=== PATIENT | male | born 1975 | race Two or more races ===

== ENCOUNTER 2020-06-23 06:07 | Emergency (ER) | payer SELFPAY ==
[~2020-06-23] VITALS: Ht 177.8 cm; Wt 104.5 kg
--- NOTE | 2020-06-23 06:23 | PHYS DOC ---
General Adult EDM: Chief Complaint: HYPERTENSION HPI: HPI: 44 yo M past medical history of tobacco dependence and hypertension, presents the ED with complaints of " my blood pressure is high." Patient states he woke up with shortness of breath, palpitations and lower extremity tremors, knew that his bp was high like 2 years prior (did not take bp at home). Patient does admit to drinking 8 beers last night and states he only drinks alcohol on weekends, not daily, denies any alcohol dependence/withdrawal symptoms. Was on blood pressure medication 2 years ago but never followed up. Has no routine PCP. States shortness of breath has improved. Denies any methamphetamine, cocaine, IVDU, Sudafed or other stimulants. No history of stroke, renal damage or CAD. No past surgical history. 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 Denies any history of anxiety, increased stress or fear. Patient presents to the ED with his daughter. Patient is German-speaking and declines warehouse examiner services, requests his daughter to translate. Review of Systems: Review of Systems: Constitutional: Denies fever or chills. [] Eyes: Denies change in visual acuity. [] HENT: Denies nasal congestion or sore throat. [] Respiratory: Denies cough or hemoptysis Cardiovascular: Denies chest pain or edema. [] GI: Denies abdominal pain, nausea, vomiting, bloody stools or diarrhea. [] : Denies dysuria or hematuria. [] Musculoskeletal: Denies back pain or joint pain. [] Integument: Denies rash. [] Neurologic: Denies headache, neck stiffness, speech changes, facial droop, focal weakness or sensory changes. [] Endocrine: Denies polyuria or polydipsia. [] Lymphatic: Denies swollen glands. [] Psychiatric: Denies depression or anxiety. [] Heart Score: Risk Factors: Risk Factors: DM, Current or recent (<one month) smoker, HTN, HLP, family history of CAD, obesity. Risk Scores: Score 0 - 3: 2.5% MACE over next 6 weeks - Discharge Home Score 4 - 6: 20.3% MACE over next 6 weeks - Admit for Clinical Observation Score 7 - 10: 72.7% MACE over next 6 weeks - Early Invasive Strategies Physical Exam: PE: Constitutional: Well developed, well nourished, no acute distress, non-toxic appearance. HENT: Normocephalic, atraumatic, Eyes: EOMI, conjunctiva normal, no discharge. Neck: Normal range of motion, supple, Cardiovascular: S1/2 present, regular rhythm, tachycardia present low 100's, bp 191/105 Lungs & Thorax: Speaking in full sentences, bilateral equal chest rise, no tachypnea or increased work of breathing, 98-99% on RA Abdomen: soft, no tenderness, Skin: Warm, dry, no erythema, no rash. [] Back: No tenderness, no CVA tenderness. [] Extremities: No tenderness, no cyanosis, no LE edema, jittery/tremulous extremities Neurologic: Alert and oriented X 3, normal motor function, normal sensory function, no focal deficits noted, CN2-12 intact Psychologic: appears very anxious and nervous despite denying stress/fear/anxiety, judgement normal, EKG: EKG: Sinus rhythm at 96 bpm, left axis deviation, normal intervals, T wave inversion III, no ST elevations or ST depressions Radiology/Procedures: Radiology/Procedures: IMAGING REPORT Signed PATIENT: MARY BAILEY ACCOUNT: [id number] : 1975 LOCATION: ER AGE: 44 SEX: M EXAM STATUS: REG ER ORD. PHYSICIAN: ANA JIMENEZ DO REASON: soa. hypertension x1 day PROCEDURE: CHEST PA & LATERAL EXAM: CHEST PA LATERAL INDICATION: Reason: soa. hypertension x1 day / Spl. Instructions: / History: . TECHNIQUE: PA and lateral views COMPARISON: None FINDINGS: The heart size is normal. The great vessels appear unremarkable. There is no hilar or mediastinal mass. Lungs show patchy peripheral airspace opacity most conspicuous of the right lung base. There is no pleural effusion or pneumothorax. There are no significant osseous abnormalities. IMPRESSION: Findings compatible with atypical pneumonia in the appropriate clinical context. Electronically signed by: Cresencio Sosa MD (06/23/2020 7:15 AM) [id number] DICTATED and SIGNED BY: CRESENCIO SOSA MD DATE: 06/23/20 [id number] Course & Med Decision Making: Course & Med Decision Making Pertinent Labs and Imaging studies reviewed. (See chart for details) COVID-19 CRITERIA: The patient was evaluated during the global COVID-19 pandemic, and that diagnosis was suspected/considered upon their initial presentation. Their evaluation, treatment and testing was consistent with current guidelines for patients who present with complaints or symptoms that may be related to COVID-19. Concern for dyspnea, likely secondary to atypical pneumonia rather than symptomatic hypertension (repeat bp 149/97). Tachycardia resolved with IVFs (dehydration from alcohol? infection?). Does not meet sits criteria. Labs with mild hypokalemia and transaminitis. Declines covid/influenza testing because he doesn't want the nasal swab. Pt aware that covid causes microthrombi/PE-this was not ruled out today, to return if shortness of breath worsens, or if he has chest pain. Reports vaccines are utd, no known h/o hepatitis. Will dc home with abx. Strict ED return precautions were given for facial droop, aphasia, sensory or motor deficits, chest pain, syncope, confusion, worsening shortness of breath or increased work of breathing, ataxia or strokelike symptoms. Encouraged urgent outpatient follow-up with PMD for blood pressure and potassium check. Life-threatening processes were considered but are low suspicion at this time, given history and physical exam. Pt was educated on all prescription medications and adverse effects. All patient's questions were answered and pt was stable at time of discharge. Life/limb-threatening differential includes but is not limited to, ACS, dysrhythmia, pneumothorax or hemothorax, pulmonary embolus, pneumonia, bronchoconstriction, pulmonary edema, angioedema, epiglottitis, tracheitis, Henry's angina, RPA/LINOTYPE MACHINIST APPRENTICE, anaphylaxis, angioedema, cardiac tamponade or murmurs, pericarditis, myocarditis, poisoning or toxicity, sepsis or autoimmune/neurologic disease. I spoken with the patient and her caregivers. I explained the patient's condition, diagnoses and treatment plan based on the information available to me at this time. I have answered the patient and her caregiver's questions and addressed any concerns. The patient and her caregivers have a good understanding of patient's diagnosis, condition and treatment plan as can be exp ected at this point. Vital signs have been stable. Patient's condition is stable and appropriate for discharge from the emergency department. Patient will pursue further outpatient evaluation with primary care physician or other designated or consulting physician as outlined in the discharge instructions. The patient and/or caregivers are agreeable to this plan of care and follow-up instructions have been explained in detail. The patient and/or caregivers have received these instructions in written form and have expressed an understanding of the discharge instructions. The patient and/or caregivers are aware that any significant change of condition or worsening of symptoms should prompt immediate return to this or the closest emergency department or c all to 911. Alisa Disclaimer: Dragmarco Disclaimer: This electronic medical record was generated, in whole or in part, using a voice recognition dictation system. Departure Departure Impression: Primary Impression: Dyspnea Additional Impressions: Atypical pneumonia Transaminitis Hypokalemia Disposition: 01 DC HOME SELF CARE/HOMELESS Condition: STABLE Referrals: LIZETT GROVE MD FOLLOW UP WITH FAMILY MEDICINE in 1-2 weeks for blood pressure, potassium and liver function Family Medicine Address: [address] [place] [id number] Patient Instructions: Hypertension, Pneumonia, Adult Additional Instructions: Return to ED immediately if your oxygen level drops below 90% (purchase a pulse oximetry at a medical supply store), difficulties breathing including rapid breathing or increased work of breathing (skin sucking under ribs), chest pain or stroke-like symptoms. EMERGENCY DEPARTMENT GENERAL DISCHARGE INSTRUCTIONS Thank you for coming to [facility] Emergency Department (ED) today and trusting us with you care. We trust that you had a positive experience in our Emergency Department. If you wish to speak to the department management, you may call the Director at [phone]. YOUR FOLLOW UP INSTRUCTIONS ARE FOLLOWS: 1. Do you have a private Doctor? If you do not have a private doctor, please ask for a resource list of physicians or clinics that may be able to assist you with follow up care. 2. The Emergency Physicain has interpreted your x-rays. The X-Ray specialist will also review them. If there is a change in the findings, you will be notified in 48 hours when at all possible. 3. A lab test or culture has been done, your results will be reviewed and you will be notified if you need a change in treatment. ADDITIONAL INSTRUCTIONS AND INFORMATION: 1. Your care today has been supervised by a physician who is specially trained in emergency care. Many problems require more than one evaluation for a complete diagnosis and treatment. We recommend that you schedule your follow up appointment as recommended to ensure complete treatment of you illness or injury. If you are unable to obtain follow up care and continue to have a problem, or if your condition worsens, we recommend that you return to the ED. 2. We are not able to safely determine your condition over the phone nor are we able to give sound medical advice over the phone. For these safety reasons, if you call for medical advice we will ask you to come to the ED for further evaluation. 3. If you have any questions regarding these discharge instructions please call the ED at [phone]. SAFETY INFORMATION: In the interest of safety, wellness, and injury prevention; we encourage you to wear your sealbelt, if you smoke; quite smoking, and we encourage family to use a protective helmet for bicycling and other sporting events that present an increased risk for head injury. IF YOUR SYMPTOMS WORSEN OR NEW SYMPTOMS DEVELOP, OR YOU HAVE CONCERNS ABOUT YOUR CONDITION; OR IF YOUR CONDITION WORSENS WHILE YOU ARE WAITING FOR YOUR FOLLOW UP APPOINTMENT; EITHER CONTACT YOUR PRIMARY CARE DOCTOR, THE PHYSICIAN WHOSE NAME AND NUMBER YOU WERE GIVEN, OR RETURN TO THE ED IMMEDIATELY. Scripts Azithromycin (ZITHROMAX) 250 Mg Tablet 250 MG PO as directed for ANTI-BIOTIC, #6 TAB 0 Refills Take 2 PO x 1 days Then take 1 PO q 24 hour for the next 4 days Prov: ANA JIMENEZ DO 06/23/20 ANA JIMENEZ DO Jun 23, 2020 06:23
[2020-06-23] MEDS ORDERED: MULTIVIT INFUSN,ADULT 4,VIT K 10 ML, THIAMINE INJ 100 MG, FOLIC ACID INJ 1 MG in IV NOR... IV ONE (06:45)
[2020-06-23 06:50] LABS: BASO # 0.1 x10^3/uL (0.0-0.2); BASO % 1 % (0-3); EOS # 0.1 x10^3/uL (0.0-0.7); EOS % 1 % (0-3); HEMATOCRIT 50.1 % (39.0-53.0); HEMOGLOBIN 17.6 g/dL (13.0-17.5); LYMPH # 2.4 x10^3/uL (1.0-4.8); LYMPH % 35 % (24-48); MEAN CORPUSCULAR HEMOGLOBIN 32 pg (25-35); MEAN CORPUSCULAR HGB CONC 35 g/dL (31-37); MEAN CORPUSCULAR VOLUME 90 fL (79-100); MONO # 0.6 x10^3/uL (0.0-1.1); MONO % 9 % (0-9); NEUT # 3.8 x10^3/uL (1.8-7.7); NEUT % 55 % (31-73); PLATELET COUNT 167 x10^3/uL (140-400); RED BLOOD COUNT 5.56 x10^6/uL (4.30-5.70); RED CELL DISTRIBUTION WIDTH 13.7 % (11.5-14.5); WHITE BLOOD COUNT 6.9 x10^3/uL (4.0-11.0)
[2020-06-23 06:59] LABS: CALCIUM 9.1 mg/dL (8.5-10.1); CREATININE 0.8 mg/dL (0.7-1.3); GFR 104.1; POTASSIUM 3.1 mmol/L (3.5-5.1)
[2020-06-23 07:05] LABS: ALBUMIN 3.7 g/dL (3.4-5.0); ALBUMIN/GLOBULIN RATIO 0.8 (1.0-1.7); TOTAL BILIRUBIN 0.3 mg/dL (0.2-1.0); TOTAL PROTEIN 8.1 g/dL (6.4-8.2)
[2020-06-23 07:16] LABS: BARBITURATES NEG (NEG); BENZODIAZEPINES NEG (NEG); CANNABINOIDS NEG (NEG); COCAINE NEG (NEG); METHADONE NEG (NEG); OPIATES NEG (NEG); PHENCYCLIDINE NEG (NEG)
--- NOTE | 2020-06-23 07:18 | RAD ---
EXAM: CHEST PA LATERAL INDICATION: Reason: soa. hypertension x1 day / Spl. Instructions: / History: . TECHNIQUE: PA and lateral views COMPARISON: None FINDINGS: The heart size is normal. The great vessels appear unremarkable. There is no hilar or mediastinal mass. Lungs show patchy peripheral airspace opacity most conspicuous of the right lung base. There is no pleural effusion or pneumothorax. There are no significant osseous abnormalities. IMPRESSION: Findings compatible with atypical pneumonia in the appropriate clinical context. Electronically signed by: Марина Sosa MD (06/23/2020 7:15 AM) [id number]
[2020-06-23 07:19] LABS: AMPHETAMINE/METHAMPHETAMINE NEG (NEG)
[2020-06-23] MEDS ORDERED: POTASSIUM CHLORIDE 20 MEQ TABLET.ER. PO ONE (07:45)
[2020-06-23] MEDS ORDERED: AZIT250T PO (07:50)
[2020-06-23 09:12] VITALS: BP 150/87
--- NOTE | 2020-06-24 07:38 | EKG ---
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
== END 2020-06-23 09:20 | disposition home or self-care (01) ==
LOC: ER 06:07
DX: J18.9 Pneumonia, unspecified organism (principal); R74.01 Elevation of levels of liver transaminase levels; E87.6 Hypokalemia; I10 Essential (primary) hypertension; Z87.891 Personal history of nicotine dependence
CPT/HCPCS: 36415; 71046; 80053; 80307; 83880; 84484; 85025; 93005; 96365; 96375; 99285; J2060; J3411; J3490; J7030

== ENCOUNTER 2020-08-26 23:59 | Emergency (ER) | payer SELFPAY ==
[~2020-08-26] VITALS: Ht 177.8 cm; Wt 116.5 kg
[~2020-08-26 23:59] MED LIST: AZIT250T PO
--- NOTE | 2020-08-27 00:34 | ED.ADGEN ---
Past Medical History Past Medical History: Hypertension Past Surgical History: No Surgical History Smoking Status: Current Every Day Smoker Alcohol Use: Heavy General Adult EDM: Chief Complaint: MULTIPLE COMPLAINTS HPI: HPI: Patient is a 44 year old male coming in for lightheadedness starting few hours prior to arrival. Patient states that he was lying in bed felt lightheaded did not pass out. Patient states that the sensation is worse when he stands up or sits up. Had this same symptoms about 4 months ago was seen here and diagnosed with atypical pneumonia. Was treated with a Z-Kvng and got better. States he has been well up until last few hours. Does not have a primary care provider. Has a history of hypertension has not been treated. Denies any history of diabetes. Denies any nausea, vomiting, headaches, fevers, diarrhea, lower extremity edema. Review of Systems: Review of Systems: All other systems within normal limits except for as noted in the HPI Current Medications: Current Medications Medications (Trade) Dose Ordered Sig/Jessi Start Time Stop Time Status Last Admin Dose Admin Info (CONTRAST GIVEN -- Rx MONITORING) 1 each PRN DAILY PRN 08/27/20 01:45 08/29/20 01:44 Iohexol (Omnipaque 350 Mg/ml) 100 ml 1X ONCE 08/27/20 02:00 08/27/20 02:01 DC 08/27/20 01:51 100 ML Sodium Chloride 500 ml @ 500 mls/hr 1X ONCE 08/27/20 02:00 08/27/20 02:59 Allergies: Allergies: Allergies Coded Allergies Type Severity Reaction Last Updated Verified No Known Drug Allergies 08/27/20 No Physical Exam: PE: Constitutional: Well developed, well nourished, no acute distress, non-toxic appearance. [] HENT: Normocephalic, atraumatic, bilateral external ears normal, nose normal. [] Eyes: PERRLA, conjunctiva normal, no discharge. [] Neck: No rigidity, supple, no stridor. [] Cardiovascular: Regular rate and rhythm, brisk cap refill [] Lungs & Thorax: Non labored symmetric respirations, no tachypnea or respiratory distress [] Abdomen: Soft, nondistended. Skin: Warm, dry, no erythema, no rash. [] Back: Unremarkable Extremities: No deformities, range of motion grossly intact, no lower extremity edema [] Neurologic: Alert and oriented X 3, no focal deficits noted. [] Psychologic: Affect normal, judgement normal, mood normal. [] Current Patient Data: Labs: Laboratory Tests Test 08/27/20 00:50 White Blood Count 8.2 x10^3/uL (4.0-11.0) Red Blood Count 5.66 x10^6/uL (4.30-5.70) Hemoglobin 18.0 g/dL (13.0-17.5) H Hematocrit 50.9 % (39.0-53.0) Mean Corpuscular Volume 90 fL (79-100) Mean Corpuscular Hemoglobin 32 pg (25-35) Mean Corpuscular Hemoglobin Concent 35 g/dL (31-37) Red Cell Distribution Width 13.7 % (11.5-14.5) Platelet Count 176 x10^3/uL (140-400) Neutrophils (%) (Auto) 68 % (31-73) Lymphocytes (%) (Auto) 21 % (24-48) L Monocytes (%) (Auto) 9 % (0-9) Eosinophils (%) (Auto) 1 % (0-3) Basophils (%) (Auto) 1 % (0-3) Neutrophils # (Auto) 5.6 x10^3/uL (1.8-7.7) Lymphocytes # (Auto) 1.8 x10^3/uL (1.0-4.8) Monocytes # (Auto) 0.7 x10^3/uL (0.0-1.1) Eosinophils # (Auto) 0.0 x10^3/uL (0.0-0.7) Basophils # (Auto) 0.1 x10^3/uL (0.0-0.2) D-Dimer (Malinda) 0.42 ug/mlFEU (0.00-0.50) Urine Collection Type Unknown Urine Color Yellow Urine Clarity Clear Urine pH 7.5 (<5.0-8.0) Urine Specific [place] 1.010 (1.000-1.030) Urine Protein 30 mg/dL (NEG-TRACE) Urine Glucose (UA) Negative mg/dL (NEG) Urine Ketones (Stick) Negative mg/dL (NEG) Urine Blood Trace (NEG) Urine Nitrite Negative (NEG) Urine Bilirubin Negative (NEG) Urine Urobilinogen Dipstick 1.0 mg/dL (0.2 mg/dL) Urine Leukocyte Esterase Negative (NEG) Urine RBC 3-5 /HPF (0-2) Urine WBC 0 /HPF (0-4) Urine Squamous Epithelial Cells None /LPF Urine Bacteria 0 /HPF (0-FEW) Sodium Level 138 mmol/L (136-145) Potassium Level 3.6 mmol/L (3.5-5.1) Chloride Level 103 mmol/L (98-107) Carbon Dioxide Level 25 mmol/L (21-32) Anion Gap 10 (6-14) Blood Urea Nitrogen 8 mg/dL (8-26) Creatinine 0.8 mg/dL (0.7-1.3) Estimated GFR (Cockcroft-Gault) 104.1 BUN/Creatinine Ratio 10 (6-20) Glucose Level 119 mg/dL (70-99) H Calcium Level 8.7 mg/dL (8.5-10.1) Magnesium Level 2.1 mg/dL (1.8-2.4) Total Bilirubin 0.5 mg/dL (0.2-1.0) Aspartate Amino Transferase (AST) 78 U/L (15-37) H Alanine Aminotransferase (ALT) 129 U/L (16-63) H Alkaline Phosphatase 134 U/L (46-116) H Troponin I Quantitative < 0.017 ng/mL (0.000-0.055) VW-Fsq-Q-Type Natriuretic Peptide 41 pg/mL (0-124) Total Protein 8.1 g/dL (6.4-8.2) Albumin 3.7 g/dL (3.4-5.0) Albumin/Globulin Ratio 0.8 (1.0-1.7) L Laboratory Tests 08/27/20 00:50 Laboratory Tests 08/27/20 00:50 Vital Signs: Vital Signs Date Time Temp Pulse Resp B/P (MAP) Pulse Ox O2 Delivery O2 Flow Rate FiO2 08/27/20 00:10 98.2 85 20 195/106 (135) 99 Room Air 98.2 EKG: EKG: Sinus rhythm with left axis deviation. Heart rate 77 bpm incomplete right bundle. No ST elevation or depression, no ectopy, normal intervals [] Heart Score: HEART Score for Chest Pain: HEART Score for Chest Pain Response (Comments) Value History Slighlty/Non-Suspicious 0 ECG Nonspecific Repolarizatio 1 Age >45 - < 65 1 Risk Factors 1 or 2 Risk Factors 1 Troponin < Normal Limit 0 Total 3 Risk Factors: Risk Factors: DM, Current or recent (<one month) smoker, HTN, HLP, family history of CAD, obesity. Risk Scores: Score 0 - 3: 2.5% MACE over next 6 weeks - Discharge Home Score 4 - 6: 20.3% MACE over next 6 weeks - Admit for Clinical Observation Score 7 - 10: 72.7% MACE over next 6 weeks - Early Invasive Strategies Radiology/Procedures: Radiology/Procedures: CT angiography chest with contrast PQRS statement: CT scans at this facility use dose reduction including either automated exposure control, iterative reconstructions, and /or weight based radiation dosing via mA and kV modification when appropriate to reduce radiation dose to as low as reasonably achievable. Contrast: 100 mL Omnipaque 350 intravenous contrast. MIP reconstructions of the arteries were acquired. HISTORY: Pulmonary emboli. Dyspnea. FINDINGS: There is mild cardiomegaly. Mild respiratory motion artifact with distraction of the peripheral small lobar pulmonary arteries may decrease sensitivity to detect small peripheral lobar emboli, in light of this no pulmonary emboli are evident. Aorta and esophagus are unremarkable. No enlarged adenopathy in the chest. There is no pericardial effusion or mediastinal mass, the prominence of the heart and right atrial silhouette from prior x-rays was likely magnification due to AP portable technique. No pneumothorax, pulmonary opacities or pleural effusions. Bones are unremarkable. IMPRESSION: No acute process. No pulmonary artery emboli. Mild cardiomegaly. No pericardial effusion. No mass or adenopathy in the chest. See above. AP chest x-ray HISTORY: Dyspnea. COMPARISON: Chest x-ray June 23, 2020. FINDINGS: Borderline cardiomegaly could be magnified by the AP portable technique however there is also increased prominence of the right atrial silhouette, which could be due to either pericardial effusion or progressive enlargement of the atrium or pericardiac mass or adenopathy new from the prior study, or secondarily is related to the magnification factors of AP portable x- rays versus prior PA x-ray technique. No pneumothorax. No pleural effusions. Underexpansion of the lungs. No pulmonary opacities. IMPRESSION: Borderline cardiomegaly and increased prominence of the right atrial silhouette of the heart, change from the prior exam, this raises the possibility of interval cardiac enlargement or development of pericardial effusion since prior exam from May 2020 as described above. This could be further assessed with dedicated PA lateral chest x-rays for comparison to prior PA lateral x-rays from May 2020, versus CT imaging. [] Course & Med Decision Making: Course & Med Decision Making Pertinent Labs and Imaging studies reviewed. (See chart for details) Work remarkable with negative orthostatic vital signs. Concern for cardiomegaly on chest x-ray. Mild cardiomegaly on CT, was but less likely due to positioning. No signs of PE or infection. Will treat patient's uncontrolled hypertension given instructions to follow-up with primary care [] Dragon Disclaimer: Dragon Disclaimer: This electronic medical record was generated, in whole or in part, using a voice recognition dictation system. Departure Departure Impression: Primary Impression: Light headedness Additional Impression: Uncontrolled hypertension Disposition: 01 DC HOME SELF CARE/HOMELESS Condition: STABLE Referrals: NO PCP (PCP) Patient Instructions: Hypertension, [id number] Additional Instructions: [facility] [address] [place] [address] [facility] [address] [place] [address] [facility] [address] [facility] [place] [address] [facility] [address] [place] [address] [facility] [address] [place] [address] [address] [address] [place] [address] [facility] [address] [place] [address] [facility] [place] [address] [place] [address] [facility] [address] [place] [address] [facility] [address] [place] [address] Scripts Hydrochlorothiazide (HYDROCHLOROTHIAZIDE TABLET) 12.5 Mg Tablet 12.5 MG PO DAILY for DIURETIC for 30 Days, #30 TAB 0 Refills Prov: HELIO SALAZAR MD 08/27/20 Problem Qualifiers HELIO SALAZAR MD Aug 27, 2020 00:34
[2020-08-27 01:00] LABS: BASO # 0.1 x10^3/uL (0.0-0.2); BASO % 1 % (0-3); EOS % 1 % (0-3); HEMATOCRIT 50.9 % (39.0-53.0); LYMPH # 1.8 x10^3/uL (1.0-4.8); LYMPH % 21 % (24-48); MEAN CORPUSCULAR HEMOGLOBIN 32 pg (25-35); MEAN CORPUSCULAR HGB CONC 35 g/dL (31-37); MEAN CORPUSCULAR VOLUME 90 fL (79-100); MONO # 0.7 x10^3/uL (0.0-1.1); MONO % 9 % (0-9); NEUT # 5.6 x10^3/uL (1.8-7.7); NEUT % 68 % (31-73); PLATELET COUNT 176 x10^3/uL (140-400); RED BLOOD COUNT 5.66 x10^6/uL (4.30-5.70); RED CELL DISTRIBUTION WIDTH 13.7 % (11.5-14.5); WHITE BLOOD COUNT 8.2 x10^3/uL (4.0-11.0)
[2020-08-27 01:02] LABS: BILIRUBIN,URINE NEGATIVE (NEG); CLARITY,URINE CLEAR; NITRITE,URINE NEGATIVE (NEG); PH,URINE 7.5 (<5.0-8.0); PROTEIN,URINE 30 mg/dL (NEG-TRACE)
[2020-08-27 01:09] LABS: BACTERIA,URINE 0 /HPF (0-FEW); COLOR,URINE YELLOW; WBC,URINE 0 /HPF (0-4)
[2020-08-27 01:12] LABS: CALCIUM 8.7 mg/dL (8.5-10.1); CREATININE 0.8 mg/dL (0.7-1.3); GFR 104.1; POTASSIUM 3.6 mmol/L (3.5-5.1)
[2020-08-27 01:17] LABS: ALBUMIN 3.7 g/dL (3.4-5.0); ALBUMIN/GLOBULIN RATIO 0.8 (1.0-1.7); MAGNESIUM 2.1 mg/dL (1.8-2.4); TOTAL BILIRUBIN 0.5 mg/dL (0.2-1.0); TOTAL PROTEIN 8.1 g/dL (6.4-8.2)
--- NOTE | 2020-08-27 01:17 | RAD ---
AP chest x-ray HISTORY: Dyspnea. COMPARISON: Chest x-ray June 23, 2020. FINDINGS: Borderline cardiomegaly could be magnified by the AP portable technique however there is al so increased prominence of the right atrial silhouette, which could be due to either pericardial effu jorge or progressive enlargement of the atrium or pericardiac mass or adenopathy new from the prior st udy, or secondarily is related to the magnification factors of AP portable x-rays versus prior PA x-r ay technique. No pneumothorax. No pleural effusions. Underexpansion of the lungs. No pulmonary opacit ies. IMPRESSION: Borderline cardiomegaly and increased prominence of the right atrial silhouette of the he art, change from the prior exam, this raises the possibility of interval cardiac enlargement or devel opment of pericardial effusion since prior exam from May 2020 as described above. This could be further assessed with dedicated PA lateral chest x-rays for comparison to prior PA lateral x-rays fro m May 2020, versus CT imaging. Electronically signed by: Marques Mayer MD (08/27/2020 1:15 AM) [facility]
[2020-08-27 01:38] VITALS: BP 152/87
[2020-08-27] MEDS ORDERED: CONTRAST GIVEN. MC PRN (01:45)
[2020-08-27] MEDS ORDERED: IOHEXOL 350 MG/ML 100 ML VIAL. IV ONE (02:00)
[2020-08-27] MEDS ORDERED: IV NORMAL SALINE 500ML BAG 500 ML IV ONE (02:00)
--- NOTE | 2020-08-27 02:14 | RAD ---
CT angiography chest with contrast PQRS statement: CT scans at this facility use dose reduction including either automated exposure cont rol, iterative reconstructions, and /or weight based radiation dosing via mA and kV modification when appropriate to reduce radiation dose to as low as reasonably achievable. Contrast: 100 mL Omnipaque 350 intravenous contrast. MIP reconstructions of the arteries were acquire d. HISTORY: Pulmonary emboli. Dyspnea. FINDINGS: There is mild cardiomegaly. Mild respiratory motion artifact with distraction of the periph eral small lobar pulmonary arteries may decrease sensitivity to detect small peripheral lobar emboli, in light of this no pulmonary emboli are evident. Aorta and esophagus are unremarkable. No enlarged adenopathy in the chest. There is no pericardial effusion or mediastinal mass, the prominence of the heart and right atrial silhouette from prior x-rays was likely magnification due to AP portable techn ique. No pneumothorax, pulmonary opacities or pleural effusions. Bones are unremarkable. IMPRESSION: No acute process. No pulmonary artery emboli. Mild cardiomegaly. No pericardial effusion. No mass or adenopathy in the chest. See above. Electronically signed by: Marques Mayer MD (08/27/2020 2:11 AM) [facility]
[2020-08-27] MEDS ORDERED: HYDR12.58 PO (02:25)
== END 2020-08-27 02:40 | disposition home or self-care (01) ==
LOC: ER 23:59
DX: R42 Dizziness and giddiness (principal); I10 Essential (primary) hypertension; F17.200 Nicotine dependence, unspecified, uncomplicated; F10.10 Alcohol abuse, uncomplicated
CPT/HCPCS: 36415; 71045; 71275; 80053; 81001; 83735; 83880; 84484; 85025; 85379; 99285; Q9967